=== PATIENT | male | born 1950 | race Caucasian/White ===

== ENCOUNTER 2024-04-18 13:00 | Day surgery (SDC) | payer OTHER ==
[2024-04-07 08:42] LABS: Absolute Eosinophils 0.1 K/uL (0-0.5); Absolute Lymphocytes (CBC) 1.8 K/uL (0.7-4.9); Absolute Monocytes 0.9 K/uL (0.1-1.3); Absolute Neutrophil 2.9 K/uL (1.8-8.0); Basophils % 0.4 % (0-1.3); Eosinophils % 1.6 % (0-4.4); Hemoglobin 13.9 g/dL (13.6-17.9); Lymphocytes % 32.3 % (15.3-44.8); MCH 30.6 pg (27.0-35.0); MCHC 33.1 g/dL (32.0-36.0); MCV 92.5 fL (80-100); MPV 7.4 fL (7.6-11.3); Monocytes % 15.1 % (3.3-12.3); Neutrophils % 50.6 % (41.7-73.7); Platelets 231 thou/uL (152-406); RBC Red Blood Cell Count 4.53 M/uL (4.33-5.43); Red Cell Distribution Width 13.3 % (12.1-15.2)
--- NOTE | 2024-04-07 08:47 | RAD REPORT ---
Procedure: Chest Pa And Lat (2 Views) HISTORY: Preop for cardiac catheterization COMPARISON: 2010 FINDINGS: The lungs appear clear of acute infiltrate. No significant pleural effusion noted. The heart is probably mildly enlarged. Ascending aorta appears prominent IMPRESSION: Ascending aorta appears prominent. This may represent an aneurysm. Further evaluation with CT recomme nded
[2024-04-07 08:55] LABS: PT Prothrombin Time 11.5 SECONDS (10.0-13.0); PTT, Activated Partial Thromb 33.8 SECONDS (24.3-36.9); Protime INR 1.01
[2024-04-07 09:02] LABS: Anion Gap 6.1 mEq/L (5.0-15.0); Potassium 4.1 mEq/L (3.5-5.1)
--- NOTE | 2024-04-10 12:14 | EKG ---
Test Date: 2024-04-07 Test Time: 09:29:42 Medical Sales Consultant: SELAM MEASUREMENT RESULTS: Intervals: Rate: 51 MI: 176 QRSD: 116 QT: 454 QTc: 418 [place]: P: 31 MI: 176 QRS: -6 T: 1 INTERPRETIVE STATEMENTS: Sinus bradycardia Incomplete left bundle branch block Borderline ECG Compared to ECG 11/05/2010 18:04:53 Left bundle-branch block now present Sinus rhythm no longer present Electronically Signed On 04-10-24 12:07:17 [employer]ENT by Butch Alvarez
[2024-04-18] MEDS ORDERED: NA CHLORIDE 0.9% 0 ML ONE (13:20)
[2024-04-18 14:06] VITALS: BP 131/83; TEMP 97.2; O2SAT 100
== END 2024-04-18 15:37 | disposition home or self-care (01) ==
LOC: CCL 13:00
PROVIDERS: ATTEND Internal Medicine
DX: R94.39 Abnormal result of other cardiovascular function study (principal); R07.9 Chest pain, unspecified; Z53.9 Procedure and treatment not carried out, unspecified reason
CPT/HCPCS: 36415; 71046; 80048; 85025; 85610; 85730; 93005; J7040

== ENCOUNTER 2024-04-19 07:13 | Day surgery (SDC) | payer OTHER ==
[~2024-04-19 07:13] MED LIST: NA CHLORIDE 0.9% 500 ML ONE
[2024-04-19] MEDS ORDERED: LIDOCAINE 1% 20 ML MDV ONE (07:21)
[2024-04-19] MEDS ORDERED: VERAPAMIL HCL 10 MG/4 ML VIAL IV ONE (07:21)
[2024-04-19] MEDS ORDERED: HEPARIN 10,000 UNIT/10 ML VIAL IV ONE (07:21)
[2024-04-19] MEDS ORDERED: NITROGLYCERIN/D5W 50 MG/250 ML BTL IV ONE (07:21)
[2024-04-19] MEDS ORDERED: HEPA 1000U/500MLS 2,000 UNIT/1,000 ML BAG IV ONE (07:21)
[2024-04-19] MEDS ORDERED: ASPIRIN 325 MG TAB ONE (07:22)
[2024-04-19] MEDS ORDERED: HEPARIN 5000 UNIT/ML 1 ML VIAL ONE (07:22)
[2024-04-19] MEDS ORDERED: FENTANYL CITR 100 MCG/2 ML ONE (07:22)
[2024-04-19] MEDS ORDERED: ATROPINE SULF 1 MG/10 ML SYR IV ONE (07:22)
[2024-04-19] MEDS ORDERED: CLOPIDOGREL 75 MG TABLET ONE (07:22)
[2024-04-19] MEDS ORDERED: TICAGRELOR 90 MG TABLET PO ONE (07:22)
[2024-04-19] MEDS ORDERED: MIDAZOLAM HCL 2 MG/2 ML INJ ONE (07:22)
--- NOTE | 2024-04-19 09:00 | OP ---
Date of Procedure: 04/18/2024 Surgeon: CHANDANA XIONG Procedures Performed: 1. Selective coronary angiogram. 2. Left heart catheterization. Indication: Chest pain with abnormal stress test. Access: Right radial artery 6-Slovenian, closed with TR band. Complications: None. Bleeding: Less than 50 mL. Sedation: None. Description Of Procedure: After risks, benefits, and alternatives were explained, the patient agreed to the procedure and signed informed consent. The patient was brought into cardiac catheterization laboratory, prepped and draped in usual sterile fashion. Then, I accessed right radial artery using pediatric micropuncture kit, placed a 6-Slovenian Slender sheath and took 5-Slovenian [place] 4 catheter over the J-wire into the aortic root across the aortic valve, measured the LVEDP and pullback did not rec ord any gradient, then engaged the RCA, took standard views and then the left main and took standard views and removed the catheter and the sheath and placed TR band with good hemostasis. Findings: 1. Left main, large and normal. 2. LAD, large and normal. Normal diagonal branches. 3. Left circumflex, large and dominant and normal. Normal OM branches. 4. RCA, small, nondominant no significant disease. 5. LVEDP is elevated between 15 and 20 mmHg. Conclusion: 1. Normal coronary arteries. 2. Slightly elevated LVEDP. Recommendation: Medical management. /MARY JANEL Voice ID: [id number] Report ID: [id number]
[2024-04-19 09:05] VITALS: TEMP 97.3
[2024-04-19 10:05] VITALS: O2SAT 98
[2024-04-19 10:21] VITALS: BP 100/48
== END 2024-04-19 10:25 | disposition home or self-care (01) ==
LOC: CCL 07:13
PROVIDERS: ADMIT Internal Medicine Interventional Cardiology; ATTEND Internal Medicine
DX: R94.39 Abnormal result of other cardiovascular function study (principal); R07.9 Chest pain, unspecified; I35.1 Nonrheumatic aortic (valve) insufficiency; Z87.891 Personal history of nicotine dependence; Z79.899 Other long term (current) drug therapy; Z01.810 Encounter for preprocedural cardiovascular examination; Z82.49 Family history of ischemic heart disease and other diseases of the circulatory system
CPT/HCPCS: 93458; 76937; C1893; Q9966; J1644; J2003; J7040; J0461; J2250; J3010